=== PATIENT | male | born 1970 | race Caucasian/White ===

== ENCOUNTER → 2017-06-14 | Outpatient (CLI) | payer OTHER ==
[~2017-06-14] MED LIST: FUROSEMIDE INJ 10 MG/ML 4 ML VIAL ONE
--- NOTE | 2017-06-14 19:24 | Diagnostic Imaging Report ---
Renal Scan with Lasix [place] Clinical information: 46 M with right flank pain x 8-9 months; unspecified hydronephrosis Technique: Following intravenous administration of 11 mCi of Tc-99m MAG3, dynamic images of the kidneys in the posterior projection were obtained through 40 minutes. Lasix 40 mg was administered intravenously at 10 minutes post injection of the tracer. Report: Left kidney: Perfusion of the left kidney is prompt. The kidney has a normal reniform shape. Extraction of tracer from the blood pool is decreased. Clearance of tracer from the renal parenchyma begins promptly but is not complete by the end of the study. The pelvicalyceal system is not dilated. Physiologic pooling of tracer is seen within the pelvicalyceal system. Drainage of tracer from the pelvicalyceal system is prompt and adequate prior to administration of Lasix. No significant stasis of tracer is seen within the left ureter. Right kidney: No perfused renal parenchyma is seen within the right renal bed. No delayed appearance of tracer is seen in the right renal bed during the study to suggest the presence of any excretory function. Differential renal function: The left kidney contributes 100% of total renal function and the right kidney contributes 0% (normal 43-57%). Impression: 1. Suspect mild medical renal disease in the left kidney. No hydronephrosis is present. No physiologically significant obstruction of the renal collecting system is present. 2. No functioning renal parenchyma is seen in the right renal bed. No relative photopenia is seen in the right renal bed to suggest the presence of a dilated fluid-filled pelvicalyceal system. Signed by: Dr. Rina Rodriguez M.D. on 06/14/2017 7:21 PM
== END ==
LOC: NM 10:15
PROVIDERS: ATTEND Urology
DX: N13.30 Unspecified hydronephrosis (principal)
CPT/HCPCS: 78708; A9562; J1940